=== PATIENT | male | born 1975 | race African-American/Black ===

== ENCOUNTER 2018-08-06 05:48 | Inpatient (IN) | payer BC ==
[2018-08-06] MEDS ORDERED: VANCOMYCIN HCL 1 MG in DEXTROSE 5 % IN WATER 250 ML IVPB ONE ×2 (06:00)
[2018-08-06] MEDS ORDERED: SCOPOLAMINE 1 PATCH TDSY TD ONE (06:00)
[2018-08-06] MEDS ORDERED: METOCLOPRAMIDE 10 MG TABLET PO ONE (06:00)
[2018-08-06] MEDS ORDERED: CEFAZOLIN 1G VIAL IVP ONE (06:00)
[2018-08-06] MEDS ORDERED: CELECOXIB 100 MG CAPSULE PO ONE (06:00)
[2018-08-06] MEDS ORDERED: FAMOTIDINE 20MG TABLET PO ONE (06:00)
[2018-08-06] MEDS ORDERED: ACETAMINOPHEN 1,000 MG/100 ML BTL IVPB ONE (06:00)
[2018-08-06] MEDS ORDERED: WATER STERILE FOR INJECTION 20 ML VIAL MC ONE (06:00)
[2018-08-06] MEDS ORDERED: CEFAZOLIN 2 Gram 2 GM/50 ML BAG IVPB ONE (06:00)
[2018-08-06] MEDS ORDERED: RINGERS SOLUTION,LACTATED 1,000 ML IV ONE ×3 (06:30→10:21)
[2018-08-06 07:29] LABS: ABO GROUP B; ANTIBODY SCREEN NEGATIVE (NEGATIVE); RH TYPE NEGATIVE
[2018-08-06] MEDS ORDERED: CEFAZOLIN 1 Gram 1 GM/50 ML BAG IVPB ONE (07:54)
[2018-08-06] MEDS ORDERED: AL HYDROX/MAG HYDROX 30ML UD PO PRN (08:14)
[2018-08-06] MEDS ORDERED: HYDROMORPHONE HCL 2 MG/ML VIAL IM PRN (08:14)
[2018-08-06] MEDS ORDERED: ZOLPIDEM TARTRATE 5 MG TABLET PO PRN (08:14)
[2018-08-06] MEDS ORDERED: METOCLOPRAMIDE HCL 10 MG/2 ML VIAL IVP PRN (08:14)
[2018-08-06] MEDS ORDERED: HYDROCODONE/APAP 7.5/325MG TABLET PO PRN (08:14)
[2018-08-06] MEDS ORDERED: DIPHENHYDRAMINE HCL 25 MG CAPSULE PO PRN (08:14)
[2018-08-06] MEDS ORDERED: KETOROLAC 30 MG/ML VIAL IVP PRN ×2 (08:14)
[2018-08-06] MEDS ORDERED: HYDROCODONE/APAP 5/325MG TABLET PO PRN ×2 (08:14)
[2018-08-06] MEDS ORDERED: ACETAMINOPHEN 325 MG TAB PO PRN (08:14)
[2018-08-06] MEDS ORDERED: NALOXONE 0.4 MG/1 ML VIAL IVP PRN (08:14)
[2018-08-06] MEDS ORDERED: BISACODYL 10 MG SUPP RC PRN (08:14)
[2018-08-06] MEDS ORDERED: MAGNESIUM HYDROXIDE 30 ML UDC PO PRN (08:14)
[2018-08-06] MEDS ORDERED: PROMETHAZINE HCL 12.5 MG in 0.9 % SODIUM CHLORIDE 100ML 50 ML IVPB PRN (08:14)
[2018-08-06] MEDS ORDERED: ONDANSETRON HCL IV 4 MG/2 ML VIAL IVP PRN (08:14)
[2018-08-06] MEDS ORDERED: ACETAMINOPHEN W/ CODEINE 300MG/60MG TABLET PO PRN ×2 (08:14)
[2018-08-06] MEDS ORDERED: TRAMADOL HCL 50 MG TABLET PO PRN (08:14)
[2018-08-06] MEDS ORDERED: ACETAMINOPHEN W/ CODEINE 300MG/30MG TABLET PO PRN ×2 (08:14)
[2018-08-06] MEDS ORDERED: BUPIVACAINE LIPOSOME 266MG/20ML VIAL SQ ONE (09:00)
[2018-08-06] MEDS ORDERED: BUPIVACAINE 0.5% W/EPI MPF 30 ML VIAL SQ ONE ×2 (09:00→10:31)
[2018-08-06] MEDS ORDERED: VANCOMYCIN HCL 3,000 MG in RINGERS SOLUTION,LACTATED 3,000 ML IM ONE (09:00)
[2018-08-06] MEDS ORDERED: DEXTROSE 5 % AND 0.9 % NACL 1,000 ML IV PRN (10:30)
[2018-08-06] MEDS: FENTANYL PF 100MCG/2ML VIAL IVP ONE ×4 (11:15→11:35)
[2018-08-06] MEDS: FERROUS SULFATE 325 MG TAB PO SCH ×2 (12:11→22:40)
[2018-08-06] MEDS: DOCUSATE SODIUM 100 MG CAPSULE PO SCH ×2 (12:11→22:40)
[2018-08-06] MEDS: HYDROMORPHONE HCL 2 MG/ML VIAL IM PRN ×3 (12:25→20:20)
[2018-08-06] MEDS: HYDROCODONE/APAP 7.5/325MG TABLET PO PRN ×3 (13:58→20:06)
[2018-08-06] MEDS ORDERED: TRANEXAMIC ACID 1,000 MG/10 ML ML IV ONE (14:35)
[2018-08-06] MEDS ORDERED: DEXMEDETOMIDINE HCL 200 MCG/2 ML VIAL IV ONE (14:35)
--- NOTE | 2018-08-06 14:38 | Rehab Evaluation ---
Patient Information - Patient Information Diagnosis: L hip DJD Ordered Treatment: PT Evaluate and Treat Status: Initial Evaluation Surgery: Yes (L THR) Date of Surgery: 08/06/18 Past Medical/Surgical Hx: PAST MEDICAL/SURGICAL HISTORY Past Surgical History APPY RIGHT HAND FX ORIF COLON RESECTION COLOSTOMY PLACEMENT AND REVERSAL RIGHT KNEE SCOPE C SCOPES HERNIA REPAIR LUMBAR DISCECTOMY PMH - Respiratory Hx Respiratory Disorders Yes Hx Bronchitis Yes: A CHILD Hx Sleep Apnea Yes: POSSIBLY NO FORMAL DX Hx of CPAP No PMH - Cardiovascular Hx Cardiovascular Disorders Yes Hx Hypertension Yes: ON MEDS FAIR CONTROL Exercise Tolerance Good PMH - Neuro Hx Neurological Disorders Yes Hx Neuropathy Yes: FEET AND HANDS FROM GB 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 Comment: HX GUILLAIN BARRE YRS AGO PMH - GI Hx Gastrointestinal Disorders Yes Hx Diverticulitis Yes Hx Gastroesophageal Reflux Yes: TUMS AT TIMES Hx Obstructive Bowel Yes: D/T RUPTURED DIVERTICULI HAD COLOSTOMY AND REVERSAL PMH - Hx Genitourinary Disorders No PMH - Endocrine Hx Endocrine Disorders No PMH - Musculoskeletal Hx Musculoskeletal Disorders Yes Hx Arthritis Yes: LEFT HIP AND OTHER JOINTS Hx Back Injury Yes: LUMBAR SX PMH - Psych Hx Psychiatric Problems No PMH - Hematology/Oncology Hx Hematology/Oncology No Disorders Premorbid Status: Detail (The patient was independent with all mobility prior to surgery.) Social History: Detail (The patient lives in a 2 story house with spouse with 4 steps at the enterance and 2 handrails. Flights of 10 stairs, then 4 with one railing are inbetween the 1st and second floor. The bathroom is equipped with a walk in shower with a grab bar and shower bench and an elevated toilet. The patient has a walker with wheel and a widebase cane.) Precautions: [place], Fall - Time With Patient Total Time Spent With Patient (Min): 30 Treatment Procedures: Detail (Initial Evaluation, Low complexity) Subjective Information - Subjective Information Per Patient (The patient had complaints of L THR pain level 7/8 at the highest using 0-10 pain scale.) Objective Data - Mental Status Patient Orientation: Oriented x3 - Visual Perception Appears within normal limits for therapeutic activities - ROM Not within normal limits (The patient's L hip is within THR precautions. All other LE AROM is WNL.) - Strength/Tone Not within normal limits (The patient's L LE strength was not tested s/p surgery, however was functional ie: the patient was able to lift L LE into bed.) - Bed Mobility Independent (The patient was independent with sit to supine and required minimal PA to lift L LE with supine to sit and use of trapeze. The patient was independent with scooting up in bed.) - Transfers Independent (The patient was independent with sit to and from stand transfer.) - Balance Balance Sitting: Good Balance Standing: Good - Sensation Intact - Gait Detail (The patient ambulated with front wheeled walker a distance of 40 feet x 1 WBAT on the L LE with supervision for safety.) Therapy Assessment - Therapy Assessment Detail (The patient was independent with transfers and required minimal assist with bed mobility and supervision with transfers. Feel the patient will progress well with mobility.) Patient Education - Patient Education Teaching Topic: Precautions (The patient was able to identify THR precautions.) Response: Return Demonstration Teaching Method: Discussion, Handout Teaching Recipient: Patient Barriers To Learning: None Problem List - Problem List Physical Therapy Problem List: Detail (1) Decreased L LE strength 2) Increased L LE pain) Goals - Goals Physical Therapy Goals: 1) The patient will be independent with bed mobility. 2) The patient will be independent with THR HEP. 3) The patient will ambulate on stairs with supervision for safety Prognosis - Prognosis Good Plan - Plan Physical Therapy Plan: PT 1-2 sessions for bed mobility, gait training and instruction in HEP.
[2018-08-06] MEDS ORDERED: FENTANYL PF 100MCG/2ML VIAL IV ONE (16:12)
[2018-08-06] MEDS ORDERED: GLYCOPYRROLATE 0.2 MG/ML ML IV ONE (16:12)
[2018-08-06] MEDS ORDERED: LIDOCAINE 2% MDV (20MG/ML) 20ML VIAL IV ONE (16:12)
[2018-08-06] MEDS ORDERED: MIDAZOLAM HCL 2MG/2ML VIAL IV ONE (16:12)
[2018-08-06] MEDS ORDERED: KETAMINE HCL 100MG/1ML VIAL INJ ONE (16:12)
[2018-08-06] MEDS ORDERED: PROPOFOL 10 MG/ML VIAL IV ONE (16:12)
[2018-08-06] MEDS: VANCOMYCIN HCL 1,000 MG in DEXTROSE 5 % IN WATER 250 ML IVPB SCH ×2 (18:22)
[2018-08-06] MEDS: TRAMADOL HCL 50 MG TABLET PO PRN (22:40)
[2018-08-06] MEDS: LORAZEPAM 0.5 MG TABLET PO PRN (23:51)
[2018-08-07] MEDS: HYDROMORPHONE HCL 2 MG/ML VIAL IM PRN ×4 (00:41→21:35)
[2018-08-07] MEDS: HYDROCODONE/APAP 7.5/325MG TABLET PO PRN ×5 (03:02→21:31)
--- NOTE | 2018-08-07 04:55 | RADIOLOGY REPORT ---
EXAM: LEFT HIP, ONE VIEW HISTORY: POST HIP ARTHROPLASTY. OSTEOARTHRITIS. TECHNIQUE: A single AP view of the left hip was obtained. Comparison: None. Encounter: Initial. FINDINGS: There are changes of total left hip arthroplasty with the metallic prosthetic components appearing well seated. No complicating fracture or dislocation. Soft tissue swelling and soft tissue emphysema at the surgical site are identified. Surgical skin nita are present. IMPRESSION: STATUS POST RECENT TOTAL LEFT HIP ARTHROPLASTY WITHOUT COMPLICATING FRACTURE OR DISLOCATION. JOB NUMBER: [id number] [facility] [place] [facility]
[2018-08-07] MEDS: VANCOMYCIN HCL 1,000 MG in DEXTROSE 5 % IN WATER 250 ML IVPB SCH ×2 (06:25)
[2018-08-07 06:28] LABS: HEMOGLOBIN 12.2 gm/dl (14.0-18.0)
[2018-08-07] MEDS: LORAZEPAM 0.5 MG TABLET PO PRN ×2 (07:57→18:56)
[2018-08-07] MEDS: FERROUS SULFATE 325 MG TAB PO SCH ×2 (09:26→21:32)
[2018-08-07] MEDS: HYDROCHLOROTHIAZIDE 12.5 MG CAPSULE PO SCH (09:26)
[2018-08-07] MEDS: AMLODIPINE BESYLATE 5MG TAB PO SCH (09:27)
[2018-08-07] MEDS: RIVAROXABAN 10 MG TABLET PO SCH (09:27)
[2018-08-07] MEDS: CELECOXIB 100 MG CAPSULE PO SCH (09:27)
[2018-08-07] MEDS: DOCUSATE SODIUM 100 MG CAPSULE PO SCH ×2 (09:27→21:32)
--- NOTE | 2018-08-07 10:57 | Rehab Evaluation ---
Patient Information - Patient Information Diagnosis: L hip DJD Ordered Treatment: OT Evaluate and Treat Status: Initial Evaluation Surgery: Yes (L THR) Date of Surgery: 08/06/18 Past Medical/Surgical Hx: PAST MEDICAL/SURGICAL HISTORY Past Surgical History APPY RIGHT HAND FX ORIF COLON RESECTION COLOSTOMY PLACEMENT AND REVERSAL RIGHT KNEE SCOPE C SCOPES HERNIA REPAIR LUMBAR DISCECTOMY PMH - Respiratory Hx Respiratory Disorders Yes Hx Bronchitis Yes: A CHILD Hx Sleep Apnea Yes: POSSIBLY NO FORMAL DX Hx of CPAP No PMH - Cardiovascular Hx Cardiovascular Disorders Yes Hx Hypertension Yes: ON MEDS FAIR CONTROL Exercise Tolerance Good PMH - Neuro Hx Neurological Disorders Yes Hx Neuropathy Yes: FEET AND HANDS FROM GB 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) Social History: Detail (Pt lives in a 2 lvl home with 4 ROSALINA and bilat HRs. Pt's bedroom is on 2nd floor. BR is equiped with walk-in shower with GB, shower bench, and RTS without GBs. Pt plans to stay at a 1st floor apt alone upon DC and reports his will be getting a RTS setup prior to DC. The patient has a FWW and a widebase cane. will assist with IADLs upon DC (laundry, yard work, etc.)) Precautions: [place], Fall, Other (WBAT LLE, post. TESS prec.) - Time With Patient Total Time Spent With Patient (Min): 53 (1 eval, 1 ADL) Subjective Information - Subjective Information Per Patient (ok to see per MILA Casey Pt agreeable to OT eval and Tx.) Objective Data - Pain Pain Present: Yes Pain Scale Used: Numeric (1 - 10) (7/10, painful, spasms, bleeding L hip) - Mental Status Patient Orientation: Oriented x3 - Visual Perception Appears within normal limits for therapeutic activities - ROM Within normal limits - Strength/Tone Within normal limits - Coordination Appears within normal limits for therapeutic activities - Bed Mobility Needs Assist (supine >< EOB with assist for LLE, use of trapeze and greatly increased time) - Transfers Needs Assist (sit >< stand from greatly elevated surfaces with MIN assist and greatly increased effort) - Balance Balance Sitting: Good Balance Standing: Good, Fair (Fair+) - Sensation Intact - Gait Detail (Fxl mobility EOB >< RTS with increased time and effort and heavily weight bearing thru B UEs on walker, slow and painful) - ADL's/IADL's Detail (OT educ. Pt on adaptive tech for LB dressing, Pt demos MOD I with use of sock aide, declines don/doff pants as Pt L hip bleeding and painful. OT educ. Pt on adaptive tech for sit >< stand for decreased pain and to maintain hip prec. Pt verbalizes 2/3 hip prec, educated on third prec and on side lying on non-Sx side with pillow between legs per Pt request to lay on side. Educ. Pt on mod. tech for kitchen, bathroom, and home safety while maintaining hip prec, Pt verbalizes understanding.) Therapy Assessment - Therapy Assessment Detail (Pain currently limiting fxl indep. this date, fxl mobility slow and painful, requiring assist for bed mobility. Pt will be alone in 1st floor apt at [place]. Pt would benefit from further inpatient OT to increase fxl indep. prior to SC.) Patient Education - Patient Education Teaching Topic: Equipment Use, Exercise/Activity, Precautions Response: Return Demonstration, Reinforcement Needed, Verbalize Understanding, Unable to Return Demo Teaching Method: Discussion, Demonstration Teaching Recipient: Patient Barriers To Learning: Other (pain) Problem List - Problem List Physical Therapy Problem List: Detail (1) Decreased L LE strength 2) Increased L LE pain) Occupational Therapy Problem List: Detail (1. Decreased indep. with LB dressing. 2. Decreased activity tolerance needed for safe and indep. self-cares. 3. Decreased knowledge of hip prec and methods to maintain TESS prec.) Goals - Goals Physical Therapy Goals: 1) The patient will be independent with bed mobility. 2) The patient will be independent with THR HEP. 3) The patient will ambulate on stairs with supervision for safety Occupational Therapy Goals: 1. Pt will be MOD I with LB dressing with sock aide and tab cutter. 2. Pt will demo increased fxl activity tolerance to allow for safe and indep. self-cares and fxl TFs. 3. Pt will verbalize 3/3 posterior TESS prec. and demo follow thru throughout Tx Prognosis - Prognosis Good Plan - Plan Physical Therapy Plan: PT 1-2 sessions for bed mobility, gait training and instruction in HEP. Occupational Therapy Plan: IP OT 1-2 visits to address needs/goals to increase fxl indep. and safety upon DC home alone.
--- NOTE | 2018-08-07 11:49 | Physical Therapy Tx Note ---
Physical Therapy Tx Note - Treatment Note Tolerated: Good Total Time Spent With Patient: 30 Physical Therapy Tx Note: Detail (The patient was in bed and complaining of level 7 pain in L hip. The patient required minimal PA and use of overhead bar with supine to sit but was able to achieve sit to supine independently with use of strap to lift L LE. The patient used overhead bar for scooting up in bed. The patient stated he would have assistance at home for bed mobility. The patient was independent with sit to and from stand transfer. The patient ambulated with front wheeled walker a distance of 108 feet x 1 independently WBAT on the L LE and slight trunk lean forward. The patient ambulated on 3 stairs with use of wall and railing using proper technique with supervision for safety. ( The patient has 2 railings at home). The patient completed THR HEP with verbal cues and use of strap with heel slides and hip abduction. The patient experienced increased pain with hip abduction. The patient has met all inpatient goals and is to receive home PT.) Physical Therapy Problem List: Detail (1) Decreased L LE strength 2) Increased L LE pain) Physical Therapy Goals: 1) The patient will be independent with bed mobility (Goal Met). 2) The patient will be independent with THR HEP (Goal Met). 3) The patient will ambulate on stairs with supervision for safety (Goal Met) Physical Therapy Plan: The patient has met all inpatient PT goals and is discharged from inpatient PT. The patient is to continue with Home PT.
[2018-08-07] MEDS: TRAMADOL HCL 50 MG TABLET PO PRN ×2 (15:12→18:56)
--- NOTE | 2018-08-07 17:02 | Occupational Therapy Tx Note ---
Occupational Therapy Tx Note - Treatment Note Tolerated: Good Total Time Spent With Patient: 20 (1 adl) Occupational Therapy Treatment Note: Detail (S: Pt supine in bed, looking forward to OT, reports he has been working on bed mobility. O: Supine > EOB MOD I this session. Pt simulates don/doffing pants with use of order dispatcher and scrub pants with supervision - verbal instruction () to for tech. to maintain hip prec. Fxl mobility household distance with FWW and supervision - to maintain TESS prec. - not twisting leg with turning and for safe FWW use. EOB > supine with MOD I - use of trapeze and increased time. OT educ. Pt on tub/shower TF tech. and car TF tech. A: Pt with increased independence and fxl mobility this session, continues to be limited by pain. P: Pt would benefit from 1 more session with OT to ensure consistency with maintaining TESS prec. and to assess total body dressing and home safety.) Occupational Therapy Problem List: Detail (1. Decreased indep. with LB dressing. 2. Decreased activity tolerance needed for safe and indep. self-cares. 3. Decreased knowledge of hip prec and methods to maintain TESS prec.) Occupational Therapy Goals: 1. Pt will be MOD I with LB dressing with sock aide and order dispatcher. 2. Pt will demo increased fxl activity tolerance to allow for safe and indep. self-cares and fxl TFs. 3. Pt will verbalize 3/3 posterior TESS prec. and demo follow thru throughout Tx Prognosis: Good Occupational Therapy Plan: IP OT 1-2 visits to address needs/goals to increase fxl indep. and safety upon DC home alone.
[2018-08-08] MEDS: HYDROCODONE/APAP 7.5/325MG TABLET PO PRN ×3 (02:14→10:17)
[2018-08-08] MEDS: HYDROMORPHONE HCL 2 MG/ML VIAL IM PRN (02:16)
[2018-08-08] MEDS: LORAZEPAM 0.5 MG TABLET PO PRN (02:31)
[2018-08-08 06:55] LABS: HEMATOCRIT 35.9 % (42.0-52.0); HEMOGLOBIN 12.2 gm/dl (14.0-18.0)
[2018-08-08] MEDS: CELECOXIB 100 MG CAPSULE PO SCH (10:17)
[2018-08-08] MEDS: AMLODIPINE BESYLATE 5MG TAB PO SCH (10:17)
[2018-08-08] MEDS: RIVAROXABAN 10 MG TABLET PO SCH (10:17)
[2018-08-08] MEDS: FERROUS SULFATE 325 MG TAB PO SCH (10:17)
[2018-08-08] MEDS: HYDROCHLOROTHIAZIDE 12.5 MG CAPSULE PO SCH (10:17)
[2018-08-08] MEDS: DOCUSATE SODIUM 100 MG CAPSULE PO SCH (10:17)
[2018-08-08] MEDS: TRAMADOL HCL 50 MG TABLET PO PRN (11:44)
[2018-08-08] MEDS ORDERED: VANCOMYCIN HCL 1 GM VIAL IVPB ONE (11:59)
[2018-08-08] MEDS ORDERED: BUPIVACAINE 0.5% W/EPI MPF 30 ML VIAL IVP ONE (11:59)
[2018-08-08] MEDS ORDERED: BUPIVACAINE LIPOSOME 266MG/20ML VIAL IV ONE (11:59)
[2018-08-08] MEDS ORDERED: TRANEXAMIC ACID 1,000 MG/10 ML ML IV ONE (11:59)
--- NOTE | 2018-08-08 13:05 | Occupational Therapy Tx Note ---
Occupational Therapy Tx Note - Treatment Note Tolerated: Good Total Time Spent With Patient: 32 (2 ADL) Occupational Therapy Treatment Note: Detail (S: Pt supine in bed upon OT arrival, agreeable to OT Tx and motivated to practice ADLs and fxl mobility. O: Supine > EOB indep without use of trapeze. OT educ. Pt on use of medical laboratory manager to doff socks and don pants, and use of long handled shoe horn to don shoes with supervision - verbal instruction - progressing to MOD I. Pt dons socks with sock aide MOD I. Pt verbalizes 3/3 TESS prec and demos good follow thru. Fxl mobility household distances with FWW and MOD I. A: Pt with decreased pain this date and demos good progress and MOD I with fxl ADLs and fxl TFs, good safety awareness. Pt has met all IP OT goals. P: Rec DC home with spouse assist for IADLs upon DC.) Occupational Therapy Problem List: Detail (1. Decreased indep. with LB dressing. 2. Decreased activity tolerance needed for safe and indep. self-cares. 3. Decreased knowledge of hip prec and methods to maintain TESS prec.) Occupational Therapy Goals: 1. Pt will be MOD I with LB dressing with sock aide and medical laboratory manager. 2. Pt will demo increased fxl activity tolerance to allow for safe and indep. self-cares and fxl TFs. 3. Pt will verbalize 3/3 posterior TESS prec. and demo follow thru throughout Tx Prognosis: Good Occupational Therapy Plan: No further IP OT needs/goals identified. DC IP OT. Thank you for this referral.
--- NOTE | 2018-08-09 08:20 | Operative Note ---
DATE OF SURGERY: 08/06/2018 PREOPERATIVE DIAGNOSIS: End-stage left hip arthrosis and morbid obesity. POSTOPERATIVE DIAGNOSIS: End-stage left hip arthrosis and morbid obesity. OPERATION: Total hip arthroplasty press-fit. SURGEON: Christopher Fernandes MD ANESTHESIA: Spinal. ANESTHESIA PROVIDER: AIDEE Nava COMPLICATIONS: None. ESTIMATED BLOOD LOSS: 300 mL OPERATIVE FINDINGS: Severe [id number] hip arthrosis, morbid obesity. COMPONENTS PLACED: [employer] Synergy total hip arthroplasty system size 15 high offset proximally porous coated stem with a 36 plus 4 mm Oxinium femoral head component, a 56 mm 3-hole acetabular Reflection shell component with 1 acetabular screw, 2 screw caps, centrally-threaded screw cap, and a highly cross-linked 20-degree hooded polyethylene liner. INDICATIONS: This is a 42-year-old male who has had persistent pain and dysfunction in his hip for several years. 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 He had severe end-stage hip arthrosis, failed nonoperative treatments. He has tried anti-inflammatories for years and he wished to proceed with hip replacement. At a young age and his size, I explained to him that he will likely need one or more revisions before the end of his life. Also the other usual complications including but not limited to infection, nerve injury, vessel injury, persistent pain, stiffness, numbness, tingling in his hip, periprosthetic fracture, need for resection arthroplasty should the components become infected or loosen, nerve injury, vessel injury, blood clot, need for anticoagulation to prevent blood clots, limb length discrepancy, need for further procedures. All his questions were answered. The course was outlined. He agreed to proceed. PROCEDURE: The patient brought to the OR and placed in the right lateral decubitus position. The left hip and lower extremity prepped and draped in sterile fashion. Prepped using Chloraprep and draped. Intraoperative timeout was performed. Next, a posterior approach was performed to the hip using incision marking template. Marked out a large incision, infiltrated with 0.5% Marcaine with epinephrine, 2 g of tranexamic acid, Exparel mixture as well, part of that, and then the skin and subcutaneous tissue dissected down to gluteal fascia. Gluteal fascia split longitudinally. The subgluteal plane was bluntly dissected. Self- retainer was brought in. Released the gluteus agusto tendon insertion to the femur partially. Next, we identified the sciatic nerve, carefully protected at all times. Then took off the short external rotators and incised the capsule longitudinal and inverted T-fashion, released the capsule, dislocated the femoral head. The femoral head is bullet-shaped. Large osteophytes and all the cartilage was eroded. Next, we cut the femoral head about 1.5 cm above the lesser trochanter. Inserted the box osteotome and then started reaming by hand with an 8 mm reamer and working up in 1 mm increments with power. Reamed up to a size 16 reamer. Next, we did a 14 broach, again broaching in 15 degrees of anteversion until it was flush with our cut. We calcar planed and then broached to a 15 and then to a 16. Stopped there. Had a good fit. Attention to the acetabulum. Released the capsule anteriorly. Placed an inferior acetabular retractor and anterior cobra retractor and multiple retractors around the acetabulum were excised, all the capsule around the periphery and labrum. Next, we started reaming with a 48 mm reamer to medialize to the medial wall and then reamed up in 1 mm increments and 45 degrees inclination and 20 degrees anteversion until we reamed up to a size 55 mm reamer and then tried a 56 with the helicopter guide and it was a good fit and flush medial to the wall. Next, we then irrigated copiously. Changed gloves. Impacted down the real 3-hole acetabular shell component with the helicopter guide in 45 degrees inclination and 20 degrees anteversion until it was flush with the medial wall. We verified. Next, we drilled a posterior central superior quadrant screw hole and inserted the 40 mm screw. It had excellent purchase. We placed a trial liner and did a trial reduction. Best combination range of motion, stability, and leg lengths was with a 36 mm head. We wanted to use a larger head in this large male and +4 mm allowed for stability with flexion, internal rotation to 70-80 degrees before the hip dislocated. Stability with extension, external rotation. Good abductor tensioning; however, the leg was possibly slightly long. Anything less than that, the leg was too unstable due to the large weight of his leg easily dislocating. Therefore, we went up to the +4 mm neck size. Next, we then removed all trial components, irrigated copiously the femoral canal, re-exposed that, and then impacted down the real femoral stem, again 15 degrees anteversion until the bead line was flush with our calcar cut. Previously, we put the real 2 screw caps, centrally-threaded screw cap, and acetabular shell and impacted down the real acetabular liner with the reed in posterior superior quadrant. Verified it was interlocked. Next, cleaned and dried the trunnion and impacted down the femoral head. Reduced the hip and found the range of motion to be the same. We irrigated copiously and placed vancomycin previously around the femoral stem during implantation and vancomycin in the joint. We injected 0.5% Marcaine with Exparel and tranexamic acid mixture in the deep tissues of vastus lateralis, short external rotators working out superficially to the gluteus on both sides with several sticks of the mixture. Next, closed the gluteal fascia securely with running #2 Stratafix suture, irrigated again, closed the skin deep with 2-0 Vicryl and nita. Injected the wounds again subcutaneous with 0.5% Marcaine with epinephrine. Sterile dressing applied provisionally change to TWILA dressing prior to discharge. Postop x-ray revealed good fit and orientation of components. CC: [facility]. Saeed in [facility]
== END 2018-08-08 12:00 | disposition home health service (06) | DRG 470 ==
LOC: MEDSURG 05:48
PROVIDERS: ADMIT Orthopaedic Surgery; ATTEND Orthopaedic Surgery
PROC: 0SRB06A Replacement of Left Hip Joint with Oxidized Zirconium on Polyethylene Synthetic Substitute, Uncemented, Open Approach (ICD-10-PCS; principal; 2018-08-06 08:00)
DX: M16.12 Unilateral primary osteoarthritis, left hip (principal); E66.01 Morbid (severe) obesity due to excess calories; I10 Essential (primary) hypertension; F17.210 Nicotine dependence, cigarettes, uncomplicated
CPT/HCPCS: 85014; 85018; 86850; 86900; 86901; 97110; 97535; C1776; J1885; J2405; J3490; J7060; J7120